=== PATIENT | female | born 1975 | race Caucasian/White ===

== ENCOUNTER → 2019-09-21 | Outpatient (CLI) | payer OTHER ==
--- NOTE | 2019-09-21 09:55 | MM ---
Reason for exam: additional evaluation requested from prior study. Last mammogram was performed 3 years and 8 months ago. History: Patient is postmenopausal and has history of other cancer at age 40. Family history of breast cancer in maternal grandmother. Physical Findings: Nurse Summary: 0.5cm nodule in the right breast at 10 o'clock (nurse kp). MG 3D Diag Mammo W/Cad BARBARA Bilateral CC and MLO view(s) were taken. Prior study comparison: January 12, 2016, bilateral MG 3d screening mammo w/cad. July 31, 2014, right breast MG work up mamm w CAD RT. The breast tissue is heterogeneously dense. This may lower the sensitivity of mammography. Subtle upper outer quadrant focal asymmetry 6cm from nipple. These results were verbally communicated with the patient and result sheet given to the patient on 09/21/19. ASSESSMENT: Incomplete: need additional imaging evaluation, BI-RAD 0 RECOMMENDATION: Ultrasound of the right breast. (upper outer quadrant)
--- NOTE | 2019-09-21 09:58 | USB ---
Reason for exam: additional evaluation requested from abnormal screening. History: Patient is postmenopausal and has history of other cancer at age 40. Family history of breast cancer in maternal grandmother. US Breast Limited RT Right limited breast ultrasound including focal area of concern, retroareolar and axilla demonstrates a possible thrombosed vessel versus other etiology at 9/10 o'clock, no flow indicated within linear area (superficial thrombophlebitis, mondor's disease). These results were verbally communicated with the patient and result sheet given to the patient on 09/21/19. ASSESSMENT: Probably benign, BI-RAD 3 RECOMMENDATION: Follow-up diagnostic mammogram of the right breast in 6 months. 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
== END | disposition home or self-care (01) ==
LOC: RADMAMWWP 08:37
PROVIDERS: ATTEND Internal Medicine
DX: R92.8 Other abnormal and inconclusive findings on diagnostic imaging of breast (principal)
CPT/HCPCS: 77062; 77066

== ENCOUNTER → 2020-09-11 | Outpatient (CLI) | payer OTHER | END | disposition home or self-care (01) | LOC: LABWHC1 08:40 | PROVIDERS: ATTEND Internal Medicine | DX: Z20.828 Contact with and (suspected) exposure to other viral communicable diseases (principal) | CPT/HCPCS: U0003; C9803 ==

== ENCOUNTER → 2020-11-14 | Outpatient (CLI) | payer OTHER ==
--- NOTE | 2020-11-15 07:46 | XR ---
EXAMINATION TYPE: XR chest 2V DATE OF EXAM: 11/14/2020 COMPARISON: None INDICATION: Short of breath TECHNIQUE: Frontal and lateral views of the chest are obtained. FINDINGS: The heart size is normal. The pulmonary vasculature is normal. The lungs are clear. IMPRESSION: 1. No acute pulmonary process.
== END | disposition home or self-care (01) ==
LOC: RADXRYALE 16:05
PROVIDERS: ATTEND Internal Medicine
DX: R06.02 Shortness of breath (principal)
CPT/HCPCS: 71046

== ENCOUNTER → 2022-06-11 | Outpatient (CLI) | payer OTHER ==
--- NOTE | 2022-06-12 07:51 | MM ---
Reason for Exam: Screening (asymptomatic). Last mammogram was performed 2 year(s) and 9 month(s) ago. Patient History: Menarche at age 12. First Full-Term at age 17. Left ovary removed at age 37. Right ovary removed at age 37. Hysterectomy at age 37. Postmenopausal. Other cancer, age 40. Maternal grandmother had breast cancer. Risk Values: Tiffany 5 year model risk: 0.6%. NCI Lifetime model risk: 6.8%. Prior Study Comparison: 07/31/2014 Right Diagnostic Mammogram, [facility]. 01/12/2016 Bilateral Screening Mammogram, [facility]. 09/21/2019 Bilateral Diagnostic Mammogram, [facility]. Tissue Density: There are scattered fibroglandular densities. Findings: Analyzed By CAD. There is no suspicious group of microcalcifications or new suspicious mass in either breast. No significant change from prior examinations. Overall Assessment: Benign, BI-RAD 2 Management: Screening Mammogram of both breasts in 1 year. A clinical breast exam by your physician is recommended on an annual basis and results should be correlated with mammographic findings. Electronically signed and approved by: Ruben Rao D.O.
== END | disposition home or self-care (01) ==
LOC: RADMAMWWP 08:21
PROVIDERS: ATTEND Internal Medicine
DX: Z12.31 Encounter for screening mammogram for malignant neoplasm of breast (principal); Z78.0 Asymptomatic menopausal state; Z80.3 Family history of malignant neoplasm of breast
CPT/HCPCS: 77063; 77067

== ENCOUNTER → 2024-03-18 | Outpatient (CLI) | payer OTHER ==
--- NOTE | 2024-03-18 16:46 | US ---
EXAMINATION TYPE: US thyroid st tissue head/neck DATE OF EXAM: 03/18/2024 COMPARISON: NONE CLINICAL INDICATION: Female, 48 years old with history of C73 MALIGNANT NEOPLASM OF THYROID; thyroid cancer 2015, thyroidectomy, Hx constantin's, pt. has had recurrent laryngitis last few months GLAND SIZE: Right Lobe: Surgically absent There is a 1.2x0.2x0.5cm hypoechoic area in the right thyroid bed, may represent lymph node or residu al tissue vs. other. Left Lobe: Surgically absent There is a 1.4x0.3x0.5cm hypoechoic area in the right thyroid bed, may represent lymph node or residu al tissue vs. other. Bilateral neck scanned, bilateral lymphadenopathy noted. Largest lymph node measures 1.0x0.3x1.2cm on the right and 2.6x1.2x0.8cm on the left. These appear to demonstrate central fatty hilum with normal reniform shape. IMPRESSION: 1. Postthyroidectomy changes noted with hypoechoic regions within the bilateral thyroidectomy beds wh ich may represent residual tissue versus lymph node versus other. Correlation with any outside imagin g is recommended otherwise consider follow-up ultrasound in 3-6 months. 2. Mildly prominent bilateral neck lymph nodes with benign appearance, likely reactive. Attention on follow-up exam.
--- NOTE | 2024-03-21 14:55 | MM ---
Reason for Exam: Screening (asymptomatic). Last mammogram was performed 1 year(s) and 9 month(s) ago. Patient History: Menarche at age 12. First Full-Term at age 17. Left ovary removed at age 37. Right ovary removed at age 37. Hysterectomy at age 37. Postmenopausal. Other cancer, age 40. Maternal grandmother had breast cancer. Risk Values: Tiffany 5 year model risk: 0.7%. NCI Lifetime model risk: 6.6%. Prior Study Comparison: 01/12/2016 Bilateral Screening Mammogram, [facility]. 09/21/2019 Bilateral Diagnostic Mammogram, [facility]. 06/11/2022 Bilateral MG 3D screening mammo w/cad, [facility]. Tissue Density: There are scattered areas of fibroglandular density. Findings: Analyzed By CAD. Right breast: There is no suspicious group of microcalcifications or new suspicious mass. Left breast: There is no suspicious group of microcalcifications or new suspicious mass. Overall Assessment: Negative, BI-RAD 1 Management: Screening Mammogram of both breasts in [address] [facility] will attempt to contact patient to return for supplemental views and ultrasound if indicated. Patient should continue monthly self-breast exams. A clinical breast exam by your physician is recommended on an annual basis. This exam should not preclude additional follow-up of suspicious palpable abnormalities. Note on Tiffany scores and lifetime risk: 1. A Tiffany score greater than 3% is considered moderate risk. If this is the case, consider specialist referral to assess eligibility for a risk reducing agent. 2. If overall lifetime risk for the development of breast cancer is 20% or higher, the patient may qualify for future screening with alternating mammogram and breast MRI. Electronically signed and approved by: Donavon Camacho DO
== END | disposition home or self-care (01) ==
LOC: RADMAMWWP 08:55
PROVIDERS: ATTEND Internal Medicine
DX: Z12.31 Encounter for screening mammogram for malignant neoplasm of breast (principal); E06.3 Autoimmune thyroiditis; C73 Malignant neoplasm of thyroid gland; Z90.89 Acquired absence of other organs; Z78.0 Asymptomatic menopausal state; Z80.3 Family history of malignant neoplasm of breast
CPT/HCPCS: 76536; 77063; 77067

== ENCOUNTER → 2024-09-13 | Outpatient (CLI) | payer OTHER ==
--- NOTE | 2024-09-13 16:16 | XR ---
EXAMINATION TYPE: XR foot complete RT DATE OF EXAM: 09/13/2024 4:03 PM COMPARISON: None CLINICAL INDICATION: Female, 49 years old with history of S99.921A; pain, swelling, bruising TECHNIQUE: XR foot complete RT examined in the AP, oblique, and lateral projections. FINDINGS: No evidence of any acute osseous pathology. No radiopaque foreign body. Dorsal forefoot swelling best appreciated on lateral view. Exact location of pain is not IMPRESSION: 1. No evidence of acute fracture. 2. Dorsal forefoot swelling without evidence of fracture. [facility], , 09/13/2024 4:13 PM
== END | disposition home or self-care (01) ==
LOC: RADXRMAIN 15:29
PROVIDERS: ATTEND Family Medicine
DX: S99.921A Unspecified injury of right foot, initial encounter (principal); M79.89 Other specified soft tissue disorders